=== PATIENT | female | born 1985 | race Caucasian/White ===

== ENCOUNTER → 2017-05-20 | Outpatient (CLI) | payer BC ==
[~2017-05-20] MED LIST: HYDR1TAB PO; LEVO500T69 PO; NAPR-248 PO; PRM25T PO
--- NOTE | 2017-05-20 16:17 | Diagnostic Imaging Report ---
EXAMINATION: Three views of the sacrum and coccyx. INDICATION: Low back pain. FINDINGS: The sacroiliac joints demonstrate normal alignment with no significant sclerotic changes or erosions seen. No fracture is noted. No radiopaque foreign body. IMPRESSION: Unremarkable exam. Dictated by: Dictated on workstation # [id number]
--- NOTE | 2017-05-20 16:19 | Diagnostic Imaging Report ---
EXAMINATION: Three views of the lumbar spine. INDICATION: Back pain. FINDINGS: There is satisfactory alignment of the lumbar spine. There is straightening of the spine curvature which may relate to muscle spasm. The vertebral body heights are preserved. There is mild disc height loss at the L5/S1 level with endplate sclerotic changes. No significant posterior osteophytes. There are mild anterior osteophytes around L3/4 level. IMPRESSION: Straightening of the lumbar spine lordosis may relate to muscle spasm. Mild degenerative changes. Dictated by: Dictated on workstation # [id number]
== END ==
LOC: RAD 15:42
PROVIDERS: ATTEND Nurse Practitioner
DX: M54.5 Low back pain (principal)
CPT/HCPCS: 72100; 72220

== ENCOUNTER → 2017-06-25 | Outpatient (CLI) | payer BC | LOC: RAD 13:56 | PROVIDERS: ATTEND Internal Medicine | DX: M54.17 Radiculopathy, lumbosacral region (principal) ==

== ENCOUNTER → 2017-06-26 | Outpatient (CLI) | payer BC ==
--- NOTE | 2017-06-26 13:18 | Diagnostic Imaging Report ---
PROCEDURE: MRI lumbar spine. TECHNIQUE: Multiplanar, multisequence MRI of the lumbar spine was performed without contrast. INDICATION: Right leg pain. FINDINGS: There are no previous MRI examinations available for comparison. The plain film examination of the lumbar spine performed on 05/20/2017 noted straightening of the lumbar spine and raised the question of muscle spasm. There was no acute abnormality identified. On the parasagittal images of this exam, the alignment of the lumbar vertebrae is unchanged when compared to the prior study. As noted on the prior exam, there is slight retrolisthesis of L3 with respect to L4, and there is narrowing of the disc space at this level. Furthermore, there is a broad-based disc bulge centrally. The disc indents the ventral aspect of the thecal sac and narrows the AP diameter to 9.3 mm. There is also mild narrowing of the neural foramen bilaterally. Furthermore, there is also narrowing of the disc space at L4-5 and the disc at this level is desiccated as well. In addition, there is a soft tissue density extending along the posterior aspect of the vertebral body of L5 on the right. I suspect that this is an extruded disc fragment. The disc material compresses the right ventral aspect of the thecal sac and narrows the AP diameter to approximately 6.3 mm. The disc material is also in close proximity to the exiting right nerve root, and I suspect that there is encroachment of the nerve root. It is conceivable that this soft tissue density could be related to a neoplastic mass arising from the nerve root. Therefore, I would recommend that a follow-up exam with intravenous contrast be performed for further study. There is also a disc bulge eccentric to the right at L5-S1. The disc indents the ventral aspect of the thecal sac and narrows the AP diameter to 11.2 mm. While there does not appear to be any significant central stenosis at this level, the disc material is in close proximity to the origin of the exiting right nerve root, and there may be encroachment of the nerve root. There is also a disc bulge centrally at the L2-3 level. The AP diameter of the thecal sac is narrowed to approximately 10.5 mm. There is no neural foraminal narrowing at this level. There is no evidence for spinal stenosis or nerve root encroachment at L1-2. There is no abnormal signal arising from the cord or the vertebral bodies to indicate an acute abnormality. There is no sign of a paraspinal mass. IMPRESSION: 1. There is degenerative disc and bony disease at every level of the lumbar spine with relative sparing of the L1-2 level. There does appear to be an extruded disc fragment on the right coursing along the right posterior aspect of the vertebral body of L5. This does produce spinal stenosis and most likely encroaches upon the exiting right nerve root at this level. It would be improbable that this soft tissue density is neoplastic in nature. Even so, a follow-up exam with intravenous contrast would be recommended for further study. 2. While the disc protrusion eccentric to the right at L5-S1 does not appear to produce any significant central stenosis, the disc material is in close proximity to the origin of the exiting right nerve root and may encroach upon the nerve root. 3. There is also mild central stenosis at L3-4, but there is no nerve root encroachment at this level. 4. The remainder of the lumbar spine is unremarkable for spinal stenosis or nerve root encroachment. 5. There is no evidence for an acute bony abnormality or for a cord lesion. Dictated by: Dictated on workstation # [id number]
== END ==
LOC: RAD 10:59
PROVIDERS: ATTEND Internal Medicine
DX: M51.16 Intervertebral disc disorders with radiculopathy, lumbar region (principal); M48.06 Spinal stenosis, lumbar region
CPT/HCPCS: 72148

== ENCOUNTER 2017-11-25 21:02 | Outpatient (CLI) | payer BC | END 2017-11-26 06:09 | disposition home or self-care (01) | LOC: SLEEP 21:02 | PROVIDERS: ATTEND Internal Medicine Cardiovascular Disease | DX: G47.33 Obstructive sleep apnea (adult) (pediatric) (principal); G47.10 Hypersomnia, unspecified; R06.83 Snoring; R00.2 Palpitations; I10 Essential (primary) hypertension | CPT/HCPCS: 95810 ==

== ENCOUNTER → 2018-09-25 | Outpatient (CLI) | payer BC ==
[2018-09-25 10:58] LABS: BASOPHILS # (AUTO) 0.1 10^3/uL (0.0-0.1); BASOPHILS % (AUTO) 1 % (0-10); EOSINOPHILS # (AUTO) 1.2 10^3/uL (0.0-0.3); EOSINOPHILS % (AUTO) 16 % (0-10); HEMATOCRIT 41 % (35-52); HEMOGLOBIN 13.9 G/DL (11.5-16.0); LYMPHOCYTES # (AUTO) 1.3 X 10^3 (1.0-4.0); LYMPHOCYTES % (AUTO) 18 % (12-44); MEAN CORPUSCULAR HEMOGLOBIN 29 PG (25-34); MEAN CORPUSCULAR HGB CONC 34 G/DL (32-36); MEAN CORPUSCULAR VOLUME 86 FL (80-99); MEAN PLATELET VOLUME 9.3 FL (7.4-10.4); MONOCYTES # (AUTO) 0.5 X 10^3 (0.0-1.0); MONOCYTES % (AUTO) 7 % (0-12); NEUTROPHILS # (AUTO) 4.3 X 10^3 (1.8-7.8); NEUTROPHILS % (AUTO) 59 % (42-75); PLATELET COUNT 316 10^3/uL (130-400); RED BLOOD COUNT 4.73 10^6/uL (4.35-5.85); RED CELL DISTRIBUTION WIDTH 12.7 % (10.0-14.5); WHITE BLOOD COUNT 7.4 10^3/uL (4.3-11.0)
[2018-09-25 11:18] LABS: BAND NEUTROPHILS 0 %; BASOPHILS % (MANUAL) 1 %; EOSINOPHILS % (MANUAL) 13 %; LYMPHOCYTES % (MANUAL) 22 %; MONOCYTES % (MANUAL) 7 %; NEUTROPHILS % (MANUAL) 57 %; RBC MORPH NORMAL
[2018-09-25 11:19] LABS: ALANINE AMINOTRANSFERASE 52 U/L (0-55); ALBUMIN 4.6 GM/DL (3.2-4.5); ALKALINE PHOSPHATASE 37 U/L (40-136); BILIRUBIN,TOTAL 0.6 MG/DL (0.1-1.0); BUN/CREATININE RATIO 12; CALCIUM 9.8 MG/DL (8.5-10.1); CARBON DIOXIDE 24 MMOL/L (21-32); CHLORIDE 102 MMOL/L (98-107); CREATININE SERUM 0.82 MG/DL (0.60-1.30); GFR ESTIMATED > 60; GLUCOSE 166 MG/DL (70-105); POTASSIUM 3.6 MMOL/L (3.6-5.0); SODIUM 138 MMOL/L (135-145); TOTAL PROTEIN 8.6 GM/DL (6.4-8.2)
== END ==
LOC: LAB 10:44
PROVIDERS: ATTEND Nurse Practitioner Family
DX: R05 Cough (principal); R06.2 Wheezing; R53.83 Other fatigue; I10 Essential (primary) hypertension; E11.9 Type 2 diabetes mellitus without complications
CPT/HCPCS: 36415; 80053; 85007; 85027; 86141; 86738

== ENCOUNTER → 2019-07-30 | Outpatient (CLI) | payer BC | LOC: CARD 09:26 | PROVIDERS: ATTEND Physician Assistant | DX: I49.3 Ventricular premature depolarization (principal); I10 Essential (primary) hypertension; R00.2 Palpitations; Z82.49 Family history of ischemic heart disease and other diseases of the circulatory system | CPT/HCPCS: 93306 ==

== ENCOUNTER → 2019-09-02 | Outpatient (CLI) | payer BC ==
--- NOTE | 2019-09-02 14:09 | Diagnostic Imaging Report ---
EXAMINATION: CHEST (PA AND LATERAL) CLINICAL INDICATION: 33-year-old female, shortness of breath with coughing for 2 to 3 weeks. COMPARISON: November 28, 2014. FINDINGS: Stable overall appearance of the cardiomediastinal silhouette. There is no identified pneumothorax. There is no pleural effusion. There is no identified focal airspace consolidation. IMPRESSION: No identified acute cardiopulmonary abnormality. Dictated by: Dictated on workstation # [id number]
== END ==
LOC: RAD 13:28
PROVIDERS: ATTEND Internal Medicine
DX: R06.02 Shortness of breath (principal); R05 Cough
CPT/HCPCS: 71046

== ENCOUNTER → 2019-11-05 | Outpatient (CLI) | payer BC ==
--- NOTE | 2019-11-05 12:56 | Diagnostic Imaging Report ---
INDICATION: Cough and wheezing. TIME OF EXAM: 12:42 p.m. COMPARISON: Correlation is made with prior chest from 09/02/2019. FINDINGS: The heart size is normal. The pulmonary vascularity is unremarkable. The lungs are clear. No infiltrate, effusion or pneumothorax is detected. IMPRESSION: No acute cardiopulmonary process is detected. Dictated by: Dictated on workstation # [id number]
== END ==
LOC: RAD 12:25
PROVIDERS: ATTEND Physician Assistant
DX: J20.9 Acute bronchitis, unspecified (principal)
CPT/HCPCS: 71046

== ENCOUNTER → 2019-11-22 | Outpatient (CLI) | payer BC ==
[~2019-11-22] MED LIST changes: +RT-ALBUTEROL SULF 2.5 MG/3 ML PRE-MIX VIAL INH ONE
== END ==
LOC: RT 12:13
PROVIDERS: ATTEND Internal Medicine
DX: R05 Cough (principal); R06.2 Wheezing
CPT/HCPCS: 94060; 94726; 94729

== ENCOUNTER → 2019-11-30 | Outpatient (CLI) | payer BC ==
[~2019-11-30] MED LIST changes: -RT-ALBUTEROL SULF 2.5 MG/3 ML PRE-MIX VIAL INH ONE
--- NOTE | 2019-11-30 16:19 | Diagnostic Imaging Report ---
INDICATION: Cough and wheezing. TIME OF EXAM: 4:02 p.m. COMPARISON: Correlation is made with prior chest from 11/05/2019. FINDINGS: There is an area of airspace consolidation in the left lower lobe, suggestive of pneumonia. Remainder of the lung peacock are clear. There is no effusion or pneumothorax. Heart size is normal. IMPRESSION: Findings most suggestive of left lower lobe pneumonia. Follow-up after course of therapy to show complete clearing is recommended. Dictated by: Dictated on workstation # [id number]
== END ==
LOC: RAD 15:49
PROVIDERS: ATTEND Nurse Practitioner
DX: R05 Cough (principal); R09.89 Other specified symptoms and signs involving the circulatory and respiratory systems
CPT/HCPCS: 71046

== ENCOUNTER → 2019-12-02 | Outpatient (CLI) | payer BC ==
--- NOTE | 2019-12-02 18:42 | Diagnostic Imaging Report ---
INDICATION: Pneumonia. PA and lateral chest obtained at 04:21 p.m. compared to 11/30/2019. FINDINGS: Infiltrate is again noted in left lower lobe compatible with pneumonia. The infiltrate appears a little more prominent than the previous study. Right lung is clear. There is no pneumothorax or pleural fluid. IMPRESSION: Infiltrate is again seen in the left lower lobe, slightly more prominent than the previous study of 11/30/2019. Dictated by: Dictated on workstation # [id number]
== END ==
LOC: RAD 16:08
PROVIDERS: ATTEND Nurse Practitioner
DX: J18.9 Pneumonia, unspecified organism (principal)
CPT/HCPCS: 71046

== ENCOUNTER → 2019-12-06 | Outpatient (CLI) | payer BC ==
--- NOTE | 2019-12-06 08:02 | Diagnostic Imaging Report ---
INDICATION: Possible pneumonia left lower lobe EXAMINATION: Two-view chest 12/06/2019 COMPARISON: 12/02/2019 FINDINGS: Two views of the chest There is a focal density at the left lung base, when compared to previous this has improved. There may be a small amount of residual focal pneumonia versus atelectasis and continued follow-up would be recommended. No effusions, no pneumothorax. Heart and pulmonary vasculature normal. IMPRESSION: 1. Mild persistent density at the left lung base; see above discussion. Dictated by: Dictated on workstation # [id number]
== END ==
LOC: RAD 07:41
PROVIDERS: ATTEND Physician Assistant
DX: J98.4 Other disorders of lung (principal)
CPT/HCPCS: 71046

== ENCOUNTER → 2019-12-12 | Outpatient (CLI) | payer BC ==
--- NOTE | 2019-12-12 12:49 | Diagnostic Imaging Report ---
EXAM: PA and lateral chest at 12:05 INDICATION: Pneumonia FINDINGS: The appearance of the chest has improved since the prior exam of 12/06/2019 as the left lower lobe pneumonia/atelectasis seen on the previous study has nearly completely if not completely resolved. The left upper lung and right lung are generally clear. There is still no sign of a pleural effusion. The mediastinum is not widened. The osseous structures are intact. The heart is stable in size. IMPRESSION: The appearance of the chest has improved since the prior exam as the left lung base is much better aerated. There is only minimal if any residual pneumonia/atelectasis still present. Dictated by: Dictated on workstation # [id number]
== END ==
LOC: RAD 11:35
PROVIDERS: ATTEND Physician Assistant
DX: J18.9 Pneumonia, unspecified organism (principal)
CPT/HCPCS: 71046

== ENCOUNTER → 2020-01-10 | Outpatient (CLI) | payer BC ==
--- NOTE | 2020-01-10 09:17 | Diagnostic Imaging Report ---
Indication: Lower respiratory infection PA and lateral chest Heart size and pulmonary vascularity are normal. Lungs are clear. There are no effusions or pneumothoraces. IMPRESSION: Negative chest Dictated by: Dictated on workstation # [id number]
== END ==
LOC: RAD 09:01
PROVIDERS: ATTEND Nurse Practitioner Family
DX: J22 Unspecified acute lower respiratory infection (principal); J30.9 Allergic rhinitis, unspecified; J40 Bronchitis, not specified as acute or chronic; G47.9 Sleep disorder, unspecified; Z87.891 Personal history of nicotine dependence
CPT/HCPCS: 71046

== ENCOUNTER → 2022-01-07 | Outpatient (CLI) | payer BC ==
--- NOTE | 2022-01-07 15:40 | Diagnostic Imaging Report ---
PROCEDURE: Pelvic comp/transvaginal sonogram. TECHNIQUE: Complete transabdominal and transvaginal pelvic ultrasound was performed. In addition, limited pelvic Doppler was performed. INDICATION: Secondary amenorrhea. FINDINGS: The uterus is anteverted measuring 7.1 x 2.6 x 4.7 cm. The endometrium is approximately 6 mm in thickness. No myometrial mass is detected. There are some cervical nabothian cysts present. The right ovary measures 3.8 x 3.1 x 4.0 cm and the left ovary measures 3.0 x 3.4 x 3.2 cm. The right ovary contains two cysts with the largest being approximately 1.9 x 2.0 x 1.2 cm. The left ovary contains a 2.5 x 1.8 x 1.8 cm cyst. There is some slight thickening of the cyst wall on the left. There is blood flow to both ovaries. No free fluid is seen. IMPRESSION: Bilateral ovarian cysts with the largest on the left. The study is otherwise unremarkable. Dictated by: Dictated on workstation # [id number]
== END ==
LOC: RAD 08:00
PROVIDERS: ATTEND Obstetrics & Gynecology
DX: N83.202 Unspecified ovarian cyst, left side (principal); N83.201 Unspecified ovarian cyst, right side
CPT/HCPCS: 76830; 76856

== ENCOUNTER → 2022-10-15 | Outpatient (REF) ==
--- NOTE | 2022-10-15 15:50 | Diagnostic Imaging Report ---
CLINICAL INDICATION: Patient was jumping up and down and landed on ankle wrong. Patient has pain in the lateral aspect of ankle and swelling. EXAM: X-ray of the right ankle, three views. COMPARISON: None. FINDINGS: There is no acute fracture or dislocation. Ankle mortise and syndesmotic joints are unremarkable. Bone island is seen involving the calcaneus. There is a hypertrophic calcaneal spur at the Achilles attachment. IMPRESSION: 1: There is no acute fracture or dislocation. 2: There is calcaneal degenerative spur. Dictated by: Dictated on workstation # [id number]
== END | disposition home or self-care (01) ==
LOC: OCC 15:22
PROVIDERS: ATTEND Family Medicine
DX: Z01.818 Encounter for other preprocedural examination (principal)
CPT/HCPCS: 73610

== ENCOUNTER 2022-11-13 17:55 | Emergency (ER) | payer BC ==
[~2022-11-13] VITALS: Ht 183 cm; Wt 91.6 kg
[2022-11-13] MEDS ORDERED: ONDANSETRON 4 MG/2 ML (SDV) Z0FRAN IVP ONE (18:15)
[2022-11-13] MEDS ORDERED: diphenhydrAMINE 50 MG/ML INJ (BENADRYL) IVP ONE (18:15)
[2022-11-13 18:17] LABS: BASOPHILS % (AUTO) 0 % (0-10); EOSINOPHILS # (AUTO) 0.2 10^3/uL (0.0-0.3); EOSINOPHILS % (AUTO) 2 % (0-10); HEMATOCRIT 40 % (35-52); HEMOGLOBIN 13.8 g/dL (11.5-16.0); LYMPHOCYTES # (AUTO) 1.5 10^3/uL (1.0-4.0); LYMPHOCYTES % (AUTO) 16 % (12-44); MEAN CORPUSCULAR HEMOGLOBIN 29 pg (25-34); MEAN CORPUSCULAR HGB CONC 34 g/dL (32-36); MEAN CORPUSCULAR VOLUME 84 fL (80-99); MEAN PLATELET VOLUME 8.9 fL (9.0-12.2); MONOCYTES # (AUTO) 0.6 10^3/uL (0.0-1.0); MONOCYTES % (AUTO) 6 % (0-12); NEUTROPHILS % (AUTO) 76 % (42-75); PLATELET COUNT 390 10^3/uL (130-400); WHITE BLOOD COUNT 9.3 10^3/uL (4.3-11.0)
[2022-11-13 18:25] LABS: BILIRUBIN,URINE NEGATIVE (NEGATIVE); CLARITY,URINE CLEAR; COLOR,URINE YELLOW; GLUCOSE, URINE (UA) 3+ (NEGATIVE); KETONES,URINE NEGATIVE (NEGATIVE); LEUKOCYTE ESTERASE ,URINE NEGATIVE (NEGATIVE); NITRITE,URINE NEGATIVE (NEGATIVE); PH,URINE 5.5 (5-9); PROTEIN,URINE NEGATIVE (NEGATIVE)
[2022-11-13 18:31] LABS: ALBUMIN 4.6 GM/DL (3.2-4.5)
[2022-11-13 18:32] LABS: CHLORIDE 104 MMOL/L (98-107); POTASSIUM 3.2 MMOL/L (3.6-5.0); SODIUM 138 MMOL/L (135-145)
[2022-11-13 18:33] LABS: CALCIUM 9.5 MG/DL (8.5-10.1)
[2022-11-13 18:34] LABS: BACTERIA,URINE NEGATIVE /HPF
[2022-11-13 18:34] LABS: GLUCOSE 139 MG/DL (70-105); TOTAL PROTEIN 8.5 GM/DL (6.4-8.2)
[2022-11-13 18:35] LABS: CARBON DIOXIDE 19 MMOL/L (21-32)
[2022-11-13 18:36] LABS: BILIRUBIN,TOTAL 0.7 MG/DL (0.1-1.0)
[2022-11-13 18:37] LABS: ALKALINE PHOSPHATASE 32 U/L (40-136)
[2022-11-13 18:38] LABS: CREATININE SERUM 0.73 MG/DL (0.60-1.30); GFR ESTIMATED 110
[2022-11-13 18:39] LABS: BUN/CREATININE RATIO 16
[2022-11-13 18:40] LABS: ALANINE AMINOTRANSFERASE 17 U/L (0-55)
[2022-11-13] MEDS ORDERED: ONDA4TAB11 SL (18:53)
--- NOTE | 2022-11-13 18:53 | ED General ---
General Chief Complaint: Abdominal/GI Problems Stated Complaint: NAUSEA,RASH ALL OVER Nursing Triage Note: PT AMB TO FT 3 W C/O ABD CRAMPING, NAUSEA, AND DIARRHEA SX 0500 THIS AM, WIDESPREAD RASH SX 1700. PT A&OX4. Source of Information: Patient Exam Limitations: No Limitations (JATINDER ALMONTE APRN) History of Present Illness Date Seen by Provider: Nov 13, 2022 Time Seen by Provider: 18:00 Initial Comments History obtained from patient. Patient is a 36-year-old female who presents to the emergency department for evaluation of nausea, diarrhea, abdominal cramping, and rash. Patient states the GI symptoms began this morning at 5 AM. She states the rash began suddenly after she woke up from a nap this afternoon at approximately 5 PM. 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 Patient denies any bloody diarrhea. She states she has dry heaves but has not had any true emesis. Patient states the rash itches. She denies any difficulty breathing, difficulty swallowing, wheezing, or stridor. No known allergies. (JATINDER ALMONTE APRN) Allergies and Home Medications Allergies Coded Allergies: No Known Drug Allergies (Unverified , 04/30/10) Patient Home Medication List Home Medication List Reviewed: Yes (JATINDER ALMONTE APRN) Hydrocodone Bit/Acetaminophen (Vicodin 5-500 Tablet) 1 Each Tablet, 1-2 EACH PO Q4HR PRN Prescribed by: ROSE FRANKEL on 04/25/102302 Levofloxacin (Levaquin 500 Mg) 500 Mg Tab, 1 EACH PO DAILY Prescribed by: ROSE FRANKEL on 04/25/102302 Naproxen (Ec-Naprosyn) 500 Mg Tablet.dr, 500 MG PO BID, (Reported) Entered as Reported by: CHERY GRIER on 04/25/102035 Ondansetron (Ondansetron Odt) 4 Mg Tab.rapdis, 4 MG SL Q4H PRN for NAUSEA/VOMITING Prescribed by: Jatinder Almonte on 11/13/221852 Promethazine Hcl (Phenergan 25 Mg) 25 Mg Tablet, 1 TAB PO Q6H PRN Prescribed by: ROSE FRANKEL on 04/25/102302 Review of Systems Review of Systems Constitutional: no symptoms reported EENTM: no symptoms reported Respiratory: no symptoms reported Cardiovascular: no symptoms reported Gastrointestinal: abdominal pain, diarrhea, nausea Genitourinary: no symptoms reported Musculoskeletal: no symptoms reported Skin: see HPI Psychiatric/Neurological: No Symptoms Reported Hematologic/Lymphatic: No Symptoms Reported Immunological/Allergic: no symptoms reported (JATINDER ALMONTE APRN) Past Hrrlxan-Hwqfdw-Nbjdho Hx Patient Social History Tobacco Use?: No Use of E-Cig and/or Vaping dev: No Substance use?: No Alcohol Use?: No (JATINDER ALMONTE APRN) Immunizations Up To Date Influenza Vaccine Up-to-Date: Yes; Up-to-Date First/Initial COVID19 Vaccinat: 2020 Second COVID19 Vaccination Dwayne: 2020 Third COVID19 Vaccination Date: 2021 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 oz. kg; 27.00 BMI Method: General Appearance: No Apparent Distress, WD/WN HEENT: PERRL/EOMI, TMs Normal, Normal ENT Inspection, Pharynx Normal Neck: Full Range of Motion, Normal Inspection, Non Tender, Supple Respiratory: Chest Non Tender, Lungs Clear, Normal Breath Sounds, No Accessory Muscle Use, No Respiratory Distress Cardiovascular: Regular Rate, Rhythm Gastrointestinal: Non Tender, Soft Extremity: Non Tender, No Calf Tenderness Neurologic/Psychiatric: Oriented x3, No Motor/Sensory Deficits, Normal Mood/Affect Skin: Normal Color, Warm/Dry (JATINDER ALMONTE APRN) Progress/Results/Core Measures Suspected Sepsis SIRS Temperature: Pulse: 118 Respiratory Rate: 20 Laboratory Tests 11/13/22 18:10: White Blood Count 9.3 Blood Pressure 136 /92 Mean: 107 Laboratory Tests 11/13/22 18:10: Creatinine 0.73, Platelet Count 390, Total Bilirubin 0.7 (JATINDER ALMONTE CAPACITOR REPAIRER) Results/Orders Lab Results Laboratory Tests Test 11/13/22 18:10 11/13/22 18:20 Range/Units White Blood Count 9.3 4.3-11.0 10^3/uL Red Blood Count 4.84 3.80-5.11 10^6/uL Hemoglobin 13.8 11.5-16.0 g/dL Hematocrit 40 35-52 % Mean Corpuscular Volume 84 80-99 fL Mean Corpuscular Hemoglobin 29 25-34 pg Mean Corpuscular Hemoglobin Concent 34 32-36 g/dL Red Cell Distribution Width 13.1 10.0-14.5 % Platelet Count 390 130-400 10^3/uL Mean Platelet Volume 8.9 L 9.0-12.2 fL Immature Granulocyte % (Auto) 0 % Neutrophils (%) (Auto) 76 H 42-75 % Lymphocytes (%) (Auto) 16 12-44 % Monocytes (%) (Auto) 6 0-12 % Eosinophils (%) (Auto) 2 0-10 % Basophils (%) (Auto) 0 0-10 % Neutrophils # (Auto) 7.0 1.8-7.8 10^3/uL Lymphocytes # (Auto) 1.5 1.0-4.0 10^3/uL Monocytes # (Auto) 0.6 0.0-1.0 10^3/uL Eosinophils # (Auto) 0.2 0.0-0.3 10^3/uL Basophils # (Auto) 0.0 0.0-0.1 10^3/uL Immature Granulocyte # (Auto) 0.0 0.0-0.1 10^3/uL Sodium Level 138 135-145 MMOL/L Potassium Level 3.2 L 3.6-5.0 MMOL/L Chloride Level 104 98-107 MMOL/L Carbon Dioxide Level 19 L 21-32 MMOL/L Anion Gap 15 H 5-14 MMOL/L Blood Urea Nitrogen 12 7-18 MG/DL Creatinine 0.73 0.60-1.30 MG/DL Estimat Glomerular Filtration Rate 110 BUN/Creatinine Ratio 16 Glucose Level 139 H 70-105 MG/DL Calcium Level 9.5 8.5-10.1 MG/DL Corrected Calcium 8.5-10.1 MG/DL Total Bilirubin 0.7 0.1-1.0 MG/DL Aspartate Amino Transf (AST/SGOT) 18 5-34 U/L Alanine Aminotransferase (ALT/SGPT) 17 0-55 U/L Alkaline Phosphatase 32 L 40-136 U/L Total Protein 8.5 H 6.4-8.2 GM/DL Albumin 4.6 H 3.2-4.5 GM/DL Urine Color YELLOW Urine Clarity CLEAR Urine pH 5.5 5-9 Urine Specific [place] <=1.005 1.016-1.022 Urine Protein NEGATIVE NEGATIVE Urine Glucose (UA) 3+ H NEGATIVE Urine Ketones NEGATIVE NEGATIVE Urine Nitrite NEGATIVE NEGATIVE Urine Bilirubin NEGATIVE NEGATIVE Urine Urobilinogen 0.2 < = 1.0 MG/DL Urine Leukocyte Esterase NEGATIVE NEGATIVE Urine RBC (Auto) NEGATIVE NEGATIVE Urine RBC NONE /HPF Urine WBC NONE /HPF Urine Crystals NONE /LPF Urine Bacteria NEGATIVE /HPF Urine Casts NONE /LPF Urine Mucus NEGATIVE /LPF Urine Culture Indicated NO (BECKA,ELISE K DO) Medications Given in ED Current Medications Medications Dose Ordered Sig/[place] Route Start Time Stop Time Status Last Admin Dose Admin Diphenhydramine HCl 25 mg ONCE ONCE IVP 11/13/22 18:15 11/13/22 18:16 DC 11/13/22 18:21 25 MG Ondansetron HCl 4 mg ONCE ONCE IVP 11/13/22 18:15 11/13/22 18:16 DC 11/13/22 18:21 4 MG (BECKA,ELISE K DO) Vital Signs/I&O 11/13/22 11/13/22 17:58 19:00 Temp 37.1 Pulse 118 86 Resp 20 20 B/P (MAP) 136/92 (107) 124/78 Pulse Ox 100 98 O2 Delivery Room Air Room Air (BECKA,ELISE K DO) Vital Signs/I&O Capillary Refill : Less Than 3 Seconds (JATINDER ALMONTE APRN) Blood Pressure Mean: 107 Progress Note : Progress Note Patient is nontoxic and well-hydrated on exam. No adventitious lung sounds or increased work of breathing noted. Patient does have a erythematous, blanchable rash noted to her face, neck, and all 4 extremities. Portions of the rash on her lower abdomen do appear raised and urticarial. States the rash is not painful. Abdominal exam is benign. Orders placed for CBC, CMP, IV placement, urinalysis, bedside , Benadryl, and Zofran. CBC is unremarkable. CMP notable for hyperglycemia which is not unexpected given patient's history of diabetes. Patient also has mild hypokalemia. Urinalysis reassuring. Bedside negative. She has symptoms likely from acute gastroenteritis. Patient does not appear dehydrated or needing fluids at this time. She was given an IV dose of Benadryl with subsequent marked improvement in pruritus and rash. Will discharge home with recommendations for supportive care and close follow-up with PCP. Return precautions for symptomology discussed. Patient verbalized understanding. It was recommended patient take a second-generation antihistamine twice daily to help with her rash and itching if it persists. (JATINDER ALMONTE APRN) Departure Impression Primary Impression: Urticarial rash Additional Impression: AGE (acute gastroenteritis) Disposition: 01 HOME, SELF-CARE Condition: Stable Departure-Patient Inst. Decision time for Depature: 18:50 (JATINDER ALMONTE APRN) Referrals: INDY TIWARI MD (PCP/Family) Primary Care Physician Patient Instructions: Hives (DC), Viral Gastroenteritis, Adult (DC) Scripts Ondansetron (Ondansetron Odt) 4 Mg Tab.rapdis 4 MG SL Q4H PRN for NAUSEA/VOMITING for 5 Days, #25 TAB 0 Refills Prov: JATINDER ALMONTE APRN 11/13/22 ATTENDING PHYSICIAN NOTE: I WAS PHYSICALLY PRESENT ER PHYSICIAN, BUT I WAS NOT INVOLVED IN ANY DECISION MAKING OR ANY CARE OF THIS PATIENT, AND I AM NOT COLLABORATING PHYSICIAN. (ELISE JOVEL DO) JATINDER ALMONTE APRN Nov 13, 2022 18:53 ELISE JOVEL DO Nov 14, 2022 00:28
[2022-11-13 19:00] VITALS: BP 124/78
== END 2022-11-13 19:00 | disposition home or self-care (01) ==
LOC: EDUNIT# 17:55 → ER 17:56
DX: L50.9 Urticaria, unspecified (principal); K52.9 Noninfective gastroenteritis and colitis, unspecified; E87.6 Hypokalemia; Z32.02 Encounter for pregnancy test, result negative
CPT/HCPCS: 36415; 80053; 81000; 84703; 85025; 99282